=== PATIENT | female | born 1995 | race Caucasian/White ===

== ENCOUNTER 2023-04-04 06:08 | Day surgery (SDC) | payer OTHER, SELFPAY ==
[2023-03-22 11:32] LABS: Beta HCG Quantitative < 2.39 mIU/ml
[2023-03-22 13:13] VITALS: BMI 22.9
[2023-04-04] VITALS (9 sets, daily range): BP systolic 117–139; BP diastolic 73–98; BMI 22.9
[2023-04-04] MEDS: NORMOSOL-R 1000 IV (07:03)
[2023-04-04] MEDS: SUBLIMAZE 25 MCG IV ×2 (09:09→09:21)
--- NOTE | 2023-04-04 09:27 | W.IMMPOSTOP ---
Surgical Immed Post Op Note
-
Primary Surgeon: Leonor Mane DO
Assisting Surgeon: none
Pre-op Diagnosis: Persistent high grade cervical dysplasia at 6-9:00 ectocervical margin on prior LEEP
Post-op Diagnosis: same
Procedure Performed: Leep and ecc under colposcopy guidance
Anesthesia Type: LMA Dr. Solano
Specimen / Cultures: 1. LEEP 2. ecc
Estimated Blood Loss: 10ml
Complications: none
Operative Findings: Colposcopy with slight AW @ 6-7:00 no punctation or atypical vessels seen. LEEP performed and tagged.
Counts correct times 2.
Stable to recovery.
== END 2023-04-04 10:35 | disposition home or self-care (01) ==
LOC: SDS 06:08
PROVIDERS: ATTENDING PHYSICIAN Obstetrics & Gynecology; FAMILY PHYSICIAN Nurse Practitioner Family
DX: N87.0 Mild cervical dysplasia (principal); N87.1 Moderate cervical dysplasia
CPT/HCPCS: 57522; 88305; 88307; 36415; 84702

== ENCOUNTER → 2023-06-15 14:48 | Outpatient (REF) | payer OTHER, SELFPAY | LOC: CLAB 14:48 | PROVIDERS: ATTENDING PHYSICIAN Surgery | DX: Z86.19 Personal history of other infectious and parasitic diseases (principal) | CPT/HCPCS: 87624; 88112 ==

== ENCOUNTER → 2023-07-17 06:38 | Day surgery (SDC) | payer OTHER, SELFPAY | LOC: GI 06:38 | PROVIDERS: ATTENDING PHYSICIAN Surgery | DX: K64.8 Other hemorrhoids (principal) | CPT/HCPCS: 45378 ==